=== PATIENT | female | born 1965 | race Caucasian/White ===

== ENCOUNTER 2017-06-01 11:34 | Day surgery (SDC) | payer BC ==
[~2017-06-01] VITALS: Ht 167.6 cm; Wt 54.4 kg
--- NOTE | 2017-06-01 12:08 | Pre-Procedure Note/Attestation ---
Pre-Procedure Note/Attestation Complete Prior to Procedure Planned Procedure: not applicable Procedure Narrative: Colonoscopy, possible biopsy, polypectomy, hemostasis, submucosal injection Indications for Procedure Pre-Operative Diagnosis: cancer screening Attestation I attest that I discussed the nature of the procedure; its benefits; risks and complications; and alternatives (and the risks and benefits of such alternatives ), prior to the procedure, with the patient (or the patient's legal pest control service representative). I attest that, if there was a reasonable possibility of needing a blood transfusion, the patient (or the patient's legal pest control service representative) was given the [facility] standardized written summary, pursuant to the Melo Anisa Blood Safety Act ([place] Health and Safety Code # 1645, as amended). I attest that I re-evaluated the patient just prior to the surgery and that there has been no change in the patient's H&P, except as documented below: TEJAL DEJESUS Jun 01, 2017 12:08
[2017-06-01] MEDS ORDERED: VITAMIN D1000 UNI1 ORAL (12:12)
[2017-06-01] MEDS ORDERED: PREMROSE OIL PO (12:12)
[2017-06-01] MEDS ORDERED: BIOTIN1000 MCG PO (12:12)
[2017-06-01] MEDS ORDERED: ESTROGEN PO (12:12)
[2017-06-01] MEDS ORDERED: MINOCYCLINE HCL45 MG PO (12:12)
[2017-06-01] MEDS ORDERED: MULTIVITAMINS1 EAC2 ORAL (12:12)
[2017-06-01] MEDS ORDERED: SPIRONOLACTONE100 MG ORAL (12:12)
[2017-06-01 12:26] VITALS: BP 99/66
[2017-06-01] MEDS ORDERED: LR 1000ml ONE (13:20)
[2017-06-01] MEDS ORDERED: Midazolam 2mg/2ml Inj ONE (13:20)
[2017-06-01] MEDS ORDERED: Propofol 200mg/20ml IV ONE (13:20)
[2017-06-01] MEDS ORDERED: Lidocaine 1% MPF 10mg/ml 5ml ONE (13:20)
--- NOTE | 2017-06-01 13:53 | Anethesia Preoperative Eval ---
Anesthesia Pre-op PMH/ROS General Date of Evaluation: Jun 01, 2017 Time of Evaluation: 13:20 Anesthesiologist: Anat ASA Score: ASA 1 Mallampati Score Class I : Soft palate, uvula, fauces, pillars visible Class II: Soft palate, uvula, fauces visible Class III: Soft palate, base of uvula visible Class IV: Only hard plate visible Mallampati Classification: Class I Surgeon: Elijah Diagnosis: colon screening Surgical Procedure: colonoscopy Anesthesia History: none Family History: no anesthesia problems Allergies: Coded Allergies: ACETAMINOPHEN (Verified Allergy, Severe, n/v, 06/01/17) OXYCODONE (Verified Allergy, Severe, n/v, 06/01/17) PENICILLINS (Verified Allergy, Severe, n/v, 06/01/17) Medications: see eMAR Past Medical History Cardiovascular: Denies: HTN, CAD, [place], valve dz, arrhythmia, other Pulmonary: Denies: asthma, COPD, WARD, other Gastrointestinal/Genitourinary: Reports: GERD, other - hysterectomy, Bilateral breast implants Neurologic/Psychiatric: Denies: dementia, CVA, depression/anxiety, TIA, other Endocrine: Denies: DM, hypothyroidism, steroids, other HEENT: Denies: cataract (L), cataract (R), glaucoma, KLAMATH (L), KLAMATH (R), other Hematology/Immune: Denies: anemia, DVT, bleeding disorder, other Musculoskeletal/Integumentary: Reports: other - Right Knee meniscus repair Anesthesia Pre-op Phys. Exam Physician Exam Last Vital Signs Date Time Temp Pulse Resp B/P (MAP) Pulse Ox O2 Delivery O2 Flow Rate FiO2 06/01/17 12:26 97.6 65 18 99/66 100 Room Air Constitutional: NAD Neurologic: CN 2-12 intact Cardiovascular: RRR Respiratory: CTA Gastrointestinal: S/NT/ND Airway Exam Mallampati Score: Class II MO: full ROM: full Teeth: intact Dentures: no upper, no lower Anesthesia Pre-op A/P Labs reviewed Studies Pre-op Studies: EKG Risk Assessment & Plan Assessment: A&Ox4 Plan: MAC Status Change Before Surgery: No Pre-Antibiotics Given Within 1 Hr of Incision: No Zeynep Coppola CRNA Jun 01, 2017 13:53
--- NOTE | 2017-06-01 14:06 | Immediate Post-Op Evaluation ---
Immediate Post-Op Evalulation Immediate Post-Op Evalulation Procedure: Colonoscopy Date of Evaluation: Jun 01, 2017 Time of Evaluation: 14:41 IV Fluids: LR 700 ml Blood Products: 0 Estimated Blood Loss: 0 Urinary Output: 0 Blood Pressure Systolic: 98 Blood Pressure Diastolic: 62 Pulse Rate: 66 Respiratory Rate: 20 O2 Sat by Pulse Oximetry: 98 Temperature (Fahrenheit): 98.2 Pain Score (1-10): 0 Nausea: No Vomiting: No Patient Status: awake, reacts, patent Hydration Status: adequate Given Within 1 Hr of Incision: Zeynep Roque CRNA Jun 01, 2017 14:06
--- NOTE | 2017-06-01 14:07 | 48 Hour Post Anesthesia Eval ---
Post Anesthesia Evaluation Procedure: Colonoscopy Date of Evaluation: Jun 01, 2017 Time of Evaluation: 14:42 Blood Pressure Systolic: 101 0: 66 Pulse Rate: 59 Respiratory Rate: 23 Temperature (Fahrenheit): 98.2 O2 Sat by Pulse Oximetry: 98 Airway: patent Nausea: No Vomiting: No Pain Intensity: 0 Hydration Status: adequate Mental Status/LOC: patient returned to baseline Follow-up care needed: patient intructions given Zeynep Coppola CRNA Jun 01, 2017 14:07
--- NOTE | 2017-06-01 14:39 | Endoscopy Procedure Note ---
Endoscopy Procedure Note Procedures Performed: colonoscopy Operative Findings/Diagnosis: No polyps Specimen: yes Pt Tolerated Procedure Well: Yes Estimated Blood Loss: minimal Anesthesiologist: SHERWIN Coppola Anesthesia: moderate sedation Medication Given: see anesthesia record Implant(s) used?: No 50 yrs or older w/o bx or poly: No 10yrs. F/U not recommended: No If not recommended, why?: Above average risk TEJAL DEJESUS Jun 01, 2017 14:39
[2017-06-01 14:40] VITALS: BP 98/56
[2017-06-01 14:45] VITALS: BP 101/66
[2017-06-01 14:50] VITALS: BP 99/64
[2017-06-01 15:16] VITALS: BP 102/65
--- NOTE | 2017-06-01 22:45 | Procedure Note ---
DATE OF PROCEDURE: 06/01/2017 PRE-PROCEDURE DIAGNOSIS: Cancer screening. POST-PROCEDURE DIAGNOSIS: Moderate internal hemorrhoids. PROCEDURES: Colonoscopy with cold forceps biopsy. SURGEON: Danielle Dejesus M.D. ANESTHESIOLOGIST: Zeynep Coppola CRNA ANESTHESIA: Propofol sedation. INDICATION FOR PROCEDURE: The patient is a 52-year-old female, who was sent to my office by her physician, Dr. Kaylynn Rose for a first time colonoscopy. The patient is positive for BRCA and in light of her history and age, it was determined at this time to proceed with the first time colonoscopy. The patient had also been diagnosed with small bowel overgrowth and was treated with Xifaxan in the past. DESCRIPTION OF PROCEDURE: Upon consent of the patient, the patient was brought to the procedure room and placed in a left lateral decubitus position. Once adequate sedation was established with propofol drip, digital rectal exam was performed, which showed some moderate internal hemorrhoids. An Olympus colonoscope was advanced through the anus and into the rectum. The descending colon, splenic flexure, transverse colon, hepatic flexure, and ascending colon were visualized. The cecum was easily reached, and the ileocecal valve and appendiceal orifice were identified. The patient's prep was noted to be good. The terminal ileum was intubated and was noted to be normal. A biopsy was taken of the terminal ilium and this was sent off the field as a specimen. The colonoscope was slowly withdrawn. There was noted to be no polyps, masses, or colitis. Upon reaching the rectum, the colonoscope was retroflexed and there was noted to be moderate internal hemorrhoids. The scope was straightened, air was evacuated from the rectum and the colonoscope was removed. The patient was awakened from anesthesia and brought to the postanesthesia recovery in stable condition. There were no complications. IMPRESSION: Small internal hemorrhoids. PLAN: Repeat colonoscopy in 5 years, continue high-fiber diet, and yearly followup. Danielle Dejesus M.D. DR: ARIK JOB#: [id number] CC: Kaylynn Rose M.D. John Bolden M.D. DANIELLE DEJESUS M.D.; FAX#: [phone]
== END 2017-06-01 15:25 | disposition home or self-care (01) ==
LOC: GAS 11:34
DX: Z12.11 Encounter for screening for malignant neoplasm of colon (principal); K64.8 Other hemorrhoids; K21.9 Gastro-esophageal reflux disease without esophagitis; Z90.710 Acquired absence of both cervix and uterus; Z88.6 Allergy status to analgesic agent; Z88.0 Allergy status to penicillin
CPT/HCPCS: 45380; J2250; J2704; J7120; 94003; 94150